=== PATIENT | female | born 1965 | race Caucasian/White ===

== ENCOUNTER 2019-01-03 06:28 | Day surgery (SDC) | payer MEDICAID ==
[2019-01-03] MEDS ORDERED: Lactated Ringers 1,000 ML IV SCH (07:15)
[2019-01-03] MEDS ORDERED: fentaNYL 100 MCG/2 ML SDV ONE (07:32)
[2019-01-03] MEDS ORDERED: Midazolam 1 MG/ML 2 ML SDV ONE (07:32)
[2019-01-03] MEDS ORDERED: Propofol 200 MG/20 ML SDV ONE (07:32)
[2019-01-03 09:14] VITALS: BP 126/93
--- NOTE | 2019-01-03 14:54 | PROC ---
DATE OF PROCEDURE: 01/03/2019 SURGEON: Carlos Pringle MD INDICATIONS: Padmini is a 53-year-old white female, comes in because of recurrent abdominal pain. When she eats, she has almost immediate pain to the point where she can hardly function, and she is afraid to eat because of the pain. The risks and benefits were explained to the patient and was taken to the OR. PROCEDURE IN DETAIL: Anesthesia was given by nurse contract officer. During the procedure, used 2 mg of Versed, 100 mcg of fentanyl, and 90 mg of propofol. The Olympus 180 scope was used. The tube was placed into the pharynx into the esophagus without difficulty and advanced under direct vision. We got into the stomach and advanced through the pylorus into the first and second part of the duodenum. Upon slow retraction of the tube, noted no lesions, ulceration, no abnormality in the small intestine, as well as the duodenal bulb. The tube was brought back into the stomach, which got good observation of the antrum, greater and lesser curvature, and the fundus. No obvious pathology was noted in the stomach. The GE junction was identified and there was a significant hiatal hernia noted greater than 2 cm. There was mild erythema noted through the area. The remainder of the esophagus was unremarkable. The vocal cords move symmetrically. No obvious pathology noted. The tube was removed. The patient tolerated the procedure well. PREOPERATIVE DIAGNOSIS: Abdominal pain. POSTOPERATIVE DIAGNOSIS: Hiatal hernia. No other pathology was noted. Carlos Pringle MD /[id number]
== END 2019-01-03 09:18 | disposition home or self-care (01) ==
LOC: JP.SDS 06:28
PROVIDERS: ATTEND Internal Medicine
DX: K44.9 Diaphragmatic hernia without obstruction or gangrene (principal); K21.9 Gastro-esophageal reflux disease without esophagitis; I10 Essential (primary) hypertension; F17.200 Nicotine dependence, unspecified, uncomplicated; F41.9 Anxiety disorder, unspecified; F32.9 Major depressive disorder, single episode, unspecified; E66.9 Obesity, unspecified; Z68.36 Body mass index [BMI] 36.0-36.9, adult; Z79.899 Other long term (current) drug therapy
CPT/HCPCS: 44376; J2250; J2704; J3010; J7120

== ENCOUNTER 2019-01-31 06:17 | Day surgery (SDC) | payer MEDICAID ==
[2019-01-31] MEDS ORDERED: fentaNYL 100 MCG/2 ML SDV ONE (07:28)
[2019-01-31] MEDS ORDERED: Propofol 200 MG/20 ML SDV ONE (07:28)
[2019-01-31] MEDS ORDERED: Midazolam 1 MG/ML 2 ML SDV ONE (07:28)
[2019-01-31] MEDS ORDERED: Lactated Ringers 1,000 ML IV SCH (07:30)
[2019-01-31 09:47] VITALS: BP 115/76
[2019-01-31] MEDS ORDERED: Iohexol 300 MG/ML 30 ML Bottle PO ONE (11:33)
[2019-01-31] MEDS ORDERED: Iopamidol 612 MG/ML 100 ML Bottle IV SCH (11:45)
[2019-01-31] MEDS ORDERED: Sodium Chloride 0.9% 100 ML IV SCH (11:45)
--- NOTE | 2019-01-31 16:18 | CRLCT ---
INDICATION: Adrenal mass. Hiatal hernia. Right upper quadrant abdominal pain. COMPARISON: 01/01/2019 TECHNIQUE: CT examination of the abdomen and pelvis was performed with the uneventful intravenous administration of 100 cc of Isovue-300 while 3 mm thick axial sections were obtained from the lung bases through the pubic symphysis. Oral contrast was administered. Please note that all CT scans at this facility use dose modulation, iterative reconstruction, and/or weight-based dosing when appropriate to reduce radiation dose to as low as reasonably achievable. FINDINGS: In the abdomen, the liver, spleen, pancreas, and right adrenal are normal in appearance. There is no change in the size of the left adrenal nodule measuring 16 x 11 millimeters. The nodule has relatively low density on today`s study and is consistent with an adrenal adenoma. The kidneys are normal in appearance. Clips are again seen in the gall bladder fossa from cholecystectomy. The abdominal aorta is normal in caliber with no sign of dilatation. There is no sign of retroperitoneal mass or adenopathy. The stomach, loops of small bowel, and right colon in the abdomen are normal in appearance. There is no change in moderate diverticulosis of the descending colon with no sign of diverticulitis. In the pelvis, the appendix is normal in appearance with no sign of inflammatory process. There is no change in prominent sigmoid diverticulosis without evidence of diverticulitis. The loops of small bowel and colon in the pelvis are otherwise normal in appearance. The uterus is again seen to be absent and the adnexal regions are normal in appearance. The urinary bladder is normal in appearance. There is no sign of pelvic or inguinal mass or adenopathy. The lung bases are clear. There is no change in a mild pericardial effusion. The osseous structures are normal in appearance for the patient`s age. IMPRESSION: Nothing seen to explain the patient`s abdominal pain. No sign of any inflammatory process involving the bowel. Stable prominent sigmoid and moderate descending colonic diverticulosis with no sign of diverticulitis. CT of the abdomen shows no change in a left adrenal nodule. It has relatively low-density on today`s study and is consistent with an adrenal adenoma. Again seen are changes of cholecystectomy with no sign of biliary ductal dilatation. CT of the pelvis shows no change in prominent sigmoid diverticulosis with no sign of diverticulitis. Status post hysterectomy. No change in mild pericardial effusion. Please note that all CT scans at this facility use dose modulation, iterative reconstruction, and/or weight-based dosing when appropriate to reduce radiation dose to as low as reasonably achievable. Dictated by Leonard Velasco MD @ Jan 31 2019 4:03PM Signed by Dr. Leonard Velasco @ Jan 31 2019 4:16PM
--- NOTE | 2019-02-01 08:04 | PROC ---
DATE OF PROCEDURE: 01/31/2019 SURGEON: Carlos Pringle MD INDICATIONS: Padmini is a 53-year-old female, comes in for a screening colonoscopy after having a positive Cologuard test. She does have a history of polyps in the past, hyperplastic. The risks and benefits were explained to the patient for a complete colonoscopy with possible biopsy and/or polypectomy. PROCEDURE IN DETAIL: Anesthesia was given by nurse wood gluer. During the procedure, we used 2 mg of Versed, 100 mcg of fentanyl, and 130 mg of propofol. The Olympus 180AL scope was used. The tube was placed into the rectum, after examination of the rectum with a gloved finger, which was unremarkable. The tube was advanced and did get to the cecum with minimal difficulty. Upon retraction of the tube, noted no lesions, ulceration, no abnormality, except for multiple diverticula in the descending colon. Good observation was done throughout the entire colon. The rectum and sigmoid were unremarkable as well. The tube was removed. The patient tolerated the procedure well. PREOPERATIVE DIAGNOSIS: Positive Cologuard evaluation. POSTOPERATIVE DIAGNOSIS: Normal colon from cecum to rectum, except for multiple diverticula in the descending colon. Carlos Pringle MD /[id number]
== END 2019-01-31 12:32 | disposition home or self-care (01) ==
LOC: JP.SDS 06:17
PROVIDERS: ATTEND Internal Medicine
DX: Z12.11 Encounter for screening for malignant neoplasm of colon (principal); K57.30 Diverticulosis of large intestine without perforation or abscess without bleeding; Z86.010 Personal history of colon polyps; I10 Essential (primary) hypertension; K21.9 Gastro-esophageal reflux disease without esophagitis; Z79.899 Other long term (current) drug therapy
CPT/HCPCS: 45378; 74177; J2250; J2704; J3010; J7030; J7120; Q9965; Q9967

== ENCOUNTER 2020-11-26 08:40 | Day surgery (SDC) | payer MEDICAID ==
[~2020-11-26 08:40] MED LIST: Midazolam 1 MG/ML 2 ML SDV ONE; Propofol 200 MG/20 ML SDV ONE; fentaNYL 100 MCG/2 ML SDV ONE
[2020-11-26] MEDS ORDERED: Sodium Chloride 0.9% 1,000 ML IV SCH (09:30)
[2020-11-26] MEDS ORDERED: Propofol 200 MG/20 ML SDV ONE (11:10)
--- NOTE | 2020-11-26 12:04 | PROC ---
DATE OF PROCEDURE: SURGEON: Carlos Pringle MD INDICATIONS: Padmini is a 55-year-old female who came to the office on Monday stating that she was not feeling well. On Monday, she had called and said that she was having diarrhea and felt that she had eaten something with bacteria and wanted to be put on something for a bacterial infection. She took tetracycline. The diarrhea continued and she continued to have abdominal pain as well as blood. She has had a significant amount of blood-tinged stools for the last week and a half as well as abdominal pain for at least 2 or 3 weeks. The risks and benefits were explained to have a colonoscopy. PROCEDURE IN DETAIL: Anesthesia was given by nurse x ray service engineer. During procedure, we used 2 mg of Versed, 2 mL of fentanyl, and 400 mg of propofol. The Olympus 190L scope was used, was placed into the rectum and advanced under direct vision. Immediately upon going into the rectum, noted significant erythema. The tube was advanced and did get to the cecum and there was significant erythema throughout the entire course of the colon. The picture was taken of the cecum. There was significant erythema noted just proximal to the cecum and multiple biopsies done throughout the entire colon which revealed the same mucosal erythema with redness and local erythema and bleeding. The tube was removed. The patient tolerated the procedure well. PREOPERATIVE DIAGNOSIS: Abdominal pain with diarrhea and blood. POSTOPERATIVE DIAGNOSIS: Multiple areas of mucosal erythema with blood and significant redness throughout the entire colon consistence with colitis of the entire colon. Multiple biopsies were done. We will have her come in to the office in the first part of next week and we will speak with her about the report at that time. Carlos Pringle MD /[id number]
[2020-11-26 12:15] VITALS: BP 108/75; PULSE 77
== END 2020-11-26 12:30 | disposition home or self-care (01) ==
LOC: JP.SDS 08:40
PROVIDERS: ATTEND Internal Medicine
DX: K52.9 Noninfective gastroenteritis and colitis, unspecified (principal); K62.89 Other specified diseases of anus and rectum
CPT/HCPCS: J2250; J2704; J3010; J7030

== ENCOUNTER 2021-03-30 19:25 | Emergency (ER) | payer MEDICAID ==
[2021-03-30 19:58] VITALS: BP 127/79; PULSE 86
--- NOTE | 2021-03-30 21:11 | EDM.PDOC ---
ED HPI GENERAL MEDICAL PROBLEM - General Chief Complaint: Gastrointestinal Problem Stated Complaint: STOMACH PAINS Time Seen by Provider: 03/30/21 20:09 Source of Information: Reports: Patient History Limitations: Reports: No Limitations - History of Present Illness INITIAL COMMENTS - FREE TEXT/NARRATIVE: Patient presents emergency room today secondary to continued episodes of diarrhea bloody stools abdominal pain and cramping. She states that symptoms initially started in November she was seen and evaluated at that time to include colonoscopy with 6 biopsies that showed inflammation borderline ulcerative colitis is the working diagnosis. She states that she was then referred to gastroenterology in [place] she last saw him on 15 March prior to this current episode that started about 2 weeks ago. Patient states that she does no anxiety increases her episodes and symptoms since she has had some increased anxiety recently secondary to her 's leg injury as well as issues with her daughter. Patient states that she has been in contact over the last 2 weeks with her tyre retreader and tomorrow has some stool studies as well as other lab work ordered. She states that she is taking Metamucil and peppermint oil but it does not seem to be helping she also has Bentyl ordered she took that last night which she found very helpful for the abdominal cramping today she took it only once and she said it only partially helped but she also states that she is having a lot of burning type epigastric discomfort especially when she eats she did get some Mylanta and says that that partially has helped. PMH/Meds--reviewed in EMR NKDA right upper quadrant Pain Score (Numeric/FACES): 4 - Related Data Allergies Allergy/AdvReac Type Severity Reaction Status Date / Time No Known Allergies Allergy Verified 03/30/21 20:05 Home Meds: Home Meds Omeprazole 20 mg PO DAILY 11/19/14 [History] buPROPion [buPROPion XL] 300 mg PO DAILY 01/02/19 [History] ARIPiprazole [Abilify] 5 mg PO DAILY 03/30/21 [History] Dicyclomine [Bentyl] 10 mg PO TID 03/30/21 [History] hydrOXYzine HCL [Atarax] 25 mg PO TID PRN 03/30/21 [History] Past Medical History HEENT History: Reports: Impaired Vision Cardiovascular History: Reports: None Respiratory History: Reports: None Gastrointestinal History: Reports: Colon Polyp, Diverticulosis, GERD Genitourinary History: Reports: None 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, , Spontaneous Musculoskeletal History: Reports: Other (See Below) Other Musculoskeletal History: R shoulder dislocation 03/11/19 Neurological History: Reports: None Psychiatric History: Reports: Anxiety, Depression Endocrine/Metabolic History: Reports: Obesity/BMI 30+ Hematologic History: Reports: None Immunologic History: Reports: None Oncologic (Cancer) History: Reports: None Dermatologic History: Reports: None - Infectious Disease History Infectious Disease History: Reports: Chicken Pox, Measles, Mumps - Past Surgical History HEENT Surgical History: Reports: None Cardiovascular Surgical History: Reports: None Respiratory Surgical History: Reports: None GI Surgical History: Reports: Cholecystectomy, Colonoscopy, EGD Female Surgical History: Reports: D&C, Hysterectomy, Tubal Ligation Endocrine Surgical History: Reports: None Neurological Surgical History: Reports: None Musculoskeletal Surgical History: Reports: Shoulder Surgery Oncologic Surgical History: Reports: None Dermatological Surgical History: Reports: None Social & Family History - Family History Family Medical History: No Pertinent Family History - Caffeine Use Caffeine Use: Reports: Coffee, Soda ED ROS GENERAL - Review of Systems Review Of Systems: Comprehensive ROS is negative, except as noted in HPI. Constitutional: Reports: No Symptoms HEENT: Reports: No Symptoms Respiratory: Reports: No Symptoms Cardiovascular: Reports: No Symptoms Endocrine: Reports: No Symptoms GI/Abdominal: Reports: Abdominal Pain, Bloody Stool, Diarrhea. Denies: Nausea, Vomiting Musculoskeletal: Reports: No Symptoms Skin: Reports: No Symptoms Neurological: Reports: No Symptoms Psychiatric: Reports: No Symptoms Hematologic/Lymphatic: Reports: No Symptoms Immunologic: Reports: No Symptoms ED EXAM, GI/ABD - Physical Exam Exam: See Below Exam Limited By: No Limitations General Appearance: Alert, WD/WN, Mild Distress, Obese Eyes: Bilateral: Normal Appearance, EOMI Ears: Normal External Exam Nose: Normal Inspection Throat/Mouth: Normal Inspection, Normal Oropharynx, Normal Voice, No Airway Compromise Head: Atraumatic, Normocephalic Neck: Normal Inspection, Supple, Non-Tender, Full Range of Motion Respiratory/Chest: No Respiratory Distress, Lungs Clear, Normal Breath Sounds, No Accessory Muscle Use Cardiovascular: Normal Peripheral Pulses, Regular Rate, Rhythm, No Edema, No Murmur GI/Abdominal Exam: Normal Bowel Sounds, Soft, No Distention, Tender (mild diffuse). No: Non-Tender, Guarding, Rigid, Rebound (Female) Exam: Deferred Rectal (Female) Exam: Deferred Back Exam: Normal Inspection, Full Range of Motion Extremities: Normal Inspection, Normal Range of Motion, No Pedal Edema, Normal Capillary Refill Neurological: Alert, Oriented, Normal Cognition, Normal Gait, No Motor/Sensory Deficits Psychiatric: Normal Affect, Normal Mood Skin Exam: Warm, Dry, Intact, Normal Color, No Rash Course - Vital Signs Text/Narrative:: Lloyd with patient recommendation to start a PPI for epigastric burning sensation that sounds like some gastritis we will give patient initial dose here in the emergency room followed by prescription there is recommended that she follow-up with her tyre retreader in regards to today's medication that was started as well as further testing as recommended verbalized understanding agree with plan of care ready for discharge Last Recorded V/S: Last Vital Signs Temp 94.2 F L 03/30/21 20:10 Pulse 86 03/30/21 20:10 Resp 16 03/30/21 20:10 BP 127/79 03/30/21 20:10 Pulse Ox 98 03/30/21 20:10 - Orders/Labs/Meds Orders: Active Orders 24 hr Category Date Time Status Pantoprazole [ProTONIX] Med 03/30/21 21:15 Ordered 40 mg PO DAILY Medication Orders Pantoprazole Sodium (Pantoprazole 40 Mg Tab.Cr) 40 mg PO DAILY [facility] Meds: Medications Generic Name Dose Route Start Last Admin Trade Name Freq PRN Reason Stop Dose Admin Pantoprazole Sodium 40 mg 03/30/21 21:15 Pantoprazole 40 Mg Tab.Cr PO DAILY [facility] Departure - Departure Time of Disposition: 21:09 Disposition: Home, Self-Care 01 Condition: Good Clinical Impression: Gastritis - Discharge Information *PRESCRIPTION DRUG MONITORING PROGRAM REVIEWED*: Not Applicable *COPY OF PRESCRIPTION DRUG MONITORING REPORT IN PATIENT DUYEN: Not Applicable Instructions: Gastritis, Adult, [id number], Heartburn Referrals: Cynthia Morales PA-C [Primary Care Provider] - Additional Instructions: As discussed tonight Protonix was started in the emergency room and a prescription was provided please contact your tyre retreader for further management regarding your abdominal pain Sepsis Event Note (ED) - Evaluation Sepsis Screening Result: No Definite Risk - Focused Exam Vital Signs: Vital Signs Temp Pulse Resp BP Pulse Ox 03/30/21 20:10 94.2 F L 86 16 127/79 98 03/30/21 19:56 94.2 F L 86 16 127/79 98 - My Orders Last 24 Hours: My Active Orders 03/30/21 21:15 Pantoprazole [ProTONIX] 40 mg PO DAILY - Assessment/Plan Last 24 Hours: My Active Orders 03/30/21 21:15 Pantoprazole [ProTONIX] 40 mg PO DAILY
[2021-03-30] MEDS ORDERED: Pantoprazole 40 MG Tab.CR PO SCH (21:15)
== END 2021-03-30 21:20 | disposition home or self-care (01) ==
LOC: JP.ED 19:25
DX: K29.70 Gastritis, unspecified, without bleeding (principal); K21.9 Gastro-esophageal reflux disease without esophagitis; E66.9 Obesity, unspecified; Z68.33 Body mass index [BMI] 33.0-33.9, adult; Z79.899 Other long term (current) drug therapy
CPT/HCPCS: 99283; A9270

== ENCOUNTER 2021-05-26 17:00 | Emergency (ER) | payer MEDICAID ==
[2021-05-26 17:31] VITALS: BP 105/65; PULSE 93
--- NOTE | 2021-05-26 17:52 | EDM.PDOC ---
ED HPI GENERAL MEDICAL PROBLEM - General Chief Complaint: Upper Extremity Injury/Pain Stated Complaint: INJURED L SHOULDER Time Seen by Provider: 05/26/21 17:30 Source of Information: Reports: Patient, Family History Limitations: Reports: No Limitations - History of Present Illness INITIAL COMMENTS - FREE TEXT/NARRATIVE: 56-year-old female with a previous history of recurring left shoulder dislocation, has had surgical stabilization and has not had an episode in the last few years but today she was reaching backward in an awkward position for her purse and felt a pop in her shoulder and now it is painful and deformed. It feels very typical for her past shoulder dislocations. Onset: Sudden Duration: Hour(s): (Within the last hour) Location: Reports: Upper Extremity, Left Associated Symptoms: Reports: No Other Symptoms Left Shoulder Pain Score (Numeric/FACES): 7 - Related Data Allergies Allergy/AdvReac Type Severity Reaction Status Date / Time No Known Allergies Allergy Verified 05/26/21 17:23 Home Meds: Home Meds Omeprazole 20 mg PO DAILY 11/19/14 [History] buPROPion [buPROPion XL] 300 mg PO DAILY 01/02/19 [History] ARIPiprazole [Abilify] 5 mg PO DAILY 03/30/21 [History] hydrOXYzine HCL [Atarax] 25 mg PO TID PRN 03/30/21 [History] Mesalamine [Pentasa] 1,000 mg PO BID 05/20/21 [History] predniSONE [Prednisone] 7.5 mg PO DAILY 05/20/21 [History] Past Medical History HEENT History: Reports: Impaired Vision Cardiovascular History: Reports: None Respiratory History: Reports: None Gastrointestinal History: Reports: Colon Polyp, Diverticulosis, GERD Genitourinary History: Reports: None 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, , Spontaneous Musculoskeletal History: Reports: Other (See Below) Other Musculoskeletal History: R shoulder dislocation 03/11/19 Neurological History: Reports: None Psychiatric History: Reports: Anxiety, Depression Endocrine/Metabolic History: Reports: Obesity/BMI 30+ Hematologic History: Reports: None Immunologic History: Reports: None Oncologic (Cancer) History: Reports: None Dermatologic History: Reports: None - Infectious Disease History Infectious Disease History: Reports: Chicken Pox, Measles, Mumps - Past Surgical History HEENT Surgical History: Reports: None Cardiovascular Surgical History: Reports: None Respiratory Surgical History: Reports: None GI Surgical History: Reports: Cholecystectomy, Colonoscopy, EGD Female Surgical History: Reports: D&C, Hysterectomy, Tubal Ligation Endocrine Surgical History: Reports: None Neurological Surgical History: Reports: None Musculoskeletal Surgical History: Reports: Shoulder Surgery Oncologic Surgical History: Reports: None Dermatological Surgical History: Reports: None Social & Family History - Family History Family Medical History: No Pertinent Family History - Tobacco Use Tobacco Use Status *Q: Never Tobacco User - Caffeine Use Caffeine Use: Reports: Coffee, Soda - Recreational Drug Use Recreational Drug Use: No Review of Systems - Review of Systems Review Of Systems: See Below Constitutional: Denies: Fever Respiratory: Reports: No Symptoms Cardiovascular: Reports: No Symptoms GI/Abdominal: Reports: Other (Had a colonoscopy today, does have ulcerative colitis but no surgeries) Musculoskeletal: Reports: Shoulder Pain Skin: Reports: No Symptoms ED EXAM, GENERAL - Physical Exam Exam: See Below Exam Limited By: No Limitations General Appearance: Alert, Moderate Distress Head: Atraumatic Neck: Non-Tender Respiratory/Chest: Lungs Clear Cardiovascular: Regular Rate, Rhythm Extremities: Other (Left shoulder has a defect under the distal clavicle, with fullness anteriorly and significant pain with any passive range of motion of the shoulder. Distal CS is intact) Neurological: Alert, Oriented Skin Exam: Warm, Dry Course - Vital Signs Last Recorded V/S: Last Vital Signs Temp 95.8 F L 05/26/21 17:27 Pulse 93 05/26/21 17:27 Resp 16 05/26/21 17:27 BP 105/65 05/26/21 17:27 Pulse Ox 97 05/26/21 17:27 - Orders/Labs/Meds Orders: Active Orders 24 hr Category Date Time Status Consult to Orthopedic Clinic [CONS] Routine Cons 05/26/21 18:42 Active DME for Discharge [COMM] Stat Oth 05/26/21 18:29 Ordered Meds: Medications Discontinued Medications Generic Name Dose Route Start Last Admin Trade Name Joaquin PRN Reason Stop Dose Admin Propofol 200 mg 05/26/21 18:00 Propofol 200 Mg/20 Ml Sdv IVPUSH 05/26/21 18:01 ONETIME ONE Propofol Confirm 05/26/21 18:36 Propofol 200 Mg/20 Ml Sdv Administered 05/26/21 18:37 Dose 200 mg .ROUTE .STK-MED ONE - Re-Assessments/Exams Free Text/Narrative Re-Assessment/Exam: 05/26/21 18:40 X-ray confirmed a dislocated left shoulder. Anesthesia was consulted to assist in the patient was prepared for reduction using propofol. With countertraction under sedation of propofol, the shoulder was reduced without difficulty and a post reduction x-ray confirmed relocation. She was given a sling, and will recheck with orthopedics for follow-up next week. 05/26/21 18:43 Total time under anesthesia was 15 minutes Departure - Departure Time of Disposition: 19:27 Disposition: Home, Self-Care 01 Clinical Impression: Dislocation of left shoulder joint Qualifiers: Encounter type: initial encounter Qualified Code(s): S43.005A - Unspecified dislocation of left shoulder joint, initial encounter - Discharge Information Instructions: Shoulder Dislocation, [id number] Referrals: Carlos Pringle Sr, MD [Primary Care Provider] - Forms: ED Department Discharge Care Plan Goals: Wear sling for the next several days and then increase activity slowly and recheck with orthopedics next week. They should contact you with an appointment time. Sepsis Event Note (ED) - Evaluation Sepsis Screening Result: No Definite Risk - Focused Exam Vital Signs: Vital Signs Temp Pulse Resp BP Pulse Ox 05/26/21 17:27 95.8 F L 93 16 105/65 97 05/26/21 17:22 95.8 F L 93 16 105/65 97 - My Orders Last 24 Hours: My Active Orders 05/26/21 18:29 DME for Discharge [COMM] Stat 05/26/21 18:42 Consult to Orthopedic Clinic [CONS] Routine - Assessment/Plan Last 24 Hours: My Active Orders 05/26/21 18:29 DME for Discharge [COMM] Stat 05/26/21 18:42 Consult to Orthopedic Clinic [CONS] Routine
[2021-05-26] MEDS ORDERED: Propofol 200 MG/20 ML SDV IVPUSH ONE (18:00)
[2021-05-26] MEDS ORDERED: Propofol 200 MG/20 ML SDV ONE (18:36)
--- NOTE | 2021-05-26 19:11 | CRLCR ---
For Patients: As a result of the Cures Act, medical imaging exams and procedure reports are released immediately into your electronic medical record. You may view this report before your referring provider. If you have questions, please contact your health care provider. INDICATION: Likely dislocation TECHNIQUE: Single-view left shoulder COMPARISON: None FINDINGS AND IMPRESSION: There is inferior dislocation the humeral head relative to the glenoid. No definite fracture. No AC separation. No suspicious bone lesion. Dictated by Rome Pang MD @ 05/26/2021 7:09:03 PM Dictated by: Rome Pang MD @ 05/26/2021 19:09:12 (Electronically Signed)
--- NOTE | 2021-05-26 19:11 | CRLCR ---
For Patients: As a result of the Cures Act, medical imaging exams and procedure reports are released immediately into your electronic medical record. You may view this report before your referring provider. If you have questions, please contact your health care provider. INDICATION: Postreduction TECHNIQUE: Single-view left shoulder COMPARISON: Left shoulder performed at 6:08 p.m. on 05/26/2021. FINDINGS AND IMPRESSION: A single view of the left shoulder demonstrates interval reduction of the previously described glenohumeral dislocation. No definite fracture identified. No AC separation. No suspicious bone lesion. Dictated by Rome Pang MD @ 05/26/2021 7:10:32 PM Dictated by: Rome Pang MD @ 05/26/2021 19:10:41 (Electronically Signed)
== END 2021-05-26 19:05 | disposition home or self-care (01) ==
LOC: JP.ED 17:00
DX: S43.035A Inferior dislocation of left humerus, initial encounter (principal); K21.9 Gastro-esophageal reflux disease without esophagitis; E66.9 Obesity, unspecified; Z68.30 Body mass index [BMI] 30.0-30.9, adult; Z79.899 Other long term (current) drug therapy; X58.XXXA Exposure to other specified factors, initial encounter
CPT/HCPCS: 23650; 73020; 99283; J2704

== ENCOUNTER 2021-08-14 10:11 | Emergency (ER) | payer MEDICAID ==
[2021-08-14] MEDS ORDERED: Lactated Ringers 1,000 ML IV ONE (11:21)
[2021-08-14] MEDS ORDERED: Sodium Chloride 0.9% 10 ML Syringe FLUSH PRN (11:21)
[2021-08-14] MEDS ORDERED: Ondansetron 4 MG/2 ML SDV IVPUSH ONE (11:21)
[2021-08-14] MEDS ORDERED: fentaNYL 100 MCG/2 ML SDV IVPUSH ONE (11:21)
--- NOTE | 2021-08-14 11:24 | EDM.PDOC ---
ED HPI GENERAL MEDICAL PROBLEM - General Chief Complaint: Gastrointestinal Problem Stated Complaint: FLARE UP OF ULCER Time Seen by Provider: 08/14/21 11:13 Source of Information: Reports: Patient, Family, RN Notes Reviewed History Limitations: Reports: No Limitations - History of Present Illness INITIAL COMMENTS - FREE TEXT/NARRATIVE: 56-year-old female presents emergency department day with increasing abdominal pain, she describes it mainly as crampy it is greatest in the right upper quadrant. She does have a known history of ulcerative colitis has been on Remicade and a steroid taper for several months is currently at 20 mg prednisone per day. She states this particular flareup has been ongoing for about a week does feel nauseated does not want to eat or drink well pain is very intense and then will relax but last 5 or 6 hours at a time. No blood or mucus in her stools. Did have blood work done yesterday CBC and a CMP done at the clinic those values were within normal limits. RUQ abdomen Pain Score (Numeric/FACES): 5 - Related Data Allergies Allergy/AdvReac Type Severity Reaction Status Date / Time No Known Allergies Allergy Verified 08/14/21 10:22 Home Meds: Home Meds Omeprazole 20 mg PO DAILY 11/19/14 [History] buPROPion [buPROPion XL] 300 mg PO DAILY 01/02/19 [History] predniSONE [Prednisone] 20 mg PO DAILY 05/20/21 [History] Nystatin [Nystatin Crm] 30 gm TOP TID 05/31/21 [History] InFLIXimab [Remicade] 100 mg IV ASDIRECTED 08/14/21 [History] Ondansetron [Zofran ODT] 4 mg PO Q6H PRN #10 tab.dis 08/14/21 [Rx] azaTHIOprine [Azathioprine] 50 mg PO BID 08/14/21 [History] Past Medical History HEENT History: Reports: Impaired Vision Gastrointestinal History: Reports: Colon Polyp, Diverticulosis, GERD, Inflammatory Bowel Disease, Other (See Below) Other Gastrointestinal History: ulcerative colitis [employer] ATT[employer]OMATIC History: Reports: Dysfunctional Uterine Bleeding, , Spontaneous Musculoskeletal History: Reports: Other (See Below) Other Musculoskeletal History: R shoulder dislocation 03/11/19,. L shoulder dislocation 05/26/21 Psychiatric History: Reports: Anxiety, Depression Endocrine/Metabolic History: Reports: Obesity/BMI 30+ Hematologic History: Reports: None Immunologic History: Reports: None Oncologic (Cancer) History: Reports: None Dermatologic History: Reports: None - Infectious Disease History Infectious Disease History: Reports: Chicken Pox, Measles, Mumps - Past Surgical History HEENT Surgical History: Reports: None Cardiovascular Surgical History: Reports: None Respiratory Surgical History: Reports: None GI Surgical History: Reports: Cholecystectomy, Colonoscopy, EGD Female Surgical History: Reports: D&C, Hysterectomy, Tubal Ligation Endocrine Surgical History: Reports: None Neurological Surgical History: Reports: None Musculoskeletal Surgical History: Reports: Shoulder Surgery Oncologic Surgical History: Reports: None Dermatological Surgical History: Reports: None Social & Family History - Family History Family Medical History: No Pertinent Family History - Tobacco Use Tobacco Use Status *Q: Never Tobacco User - Caffeine Use Caffeine Use: Reports: Coffee, Soda - Recreational Drug Use Recreational Drug Use: No ED ROS GENERAL - Review of Systems Review Of Systems: See Below Constitutional: Denies: Fever, Chills Respiratory: Reports: No Symptoms Cardiovascular: Reports: No Symptoms GI/Abdominal: Reports: Abdominal Pain, Flatus, Nausea. Denies: Constipation, Diarrhea, Vomiting : Reports: No Symptoms ED EXAM, GI/ABD - Physical Exam Exam: See Below Exam Limited By: No Limitations General Appearance: Alert, WD/WN, No Apparent Distress Respiratory/Chest: No Respiratory Distress, Lungs Clear, Normal Breath Sounds, No Accessory Muscle Use, Chest Non-Tender Cardiovascular: Regular Rate, Rhythm, No Murmur GI/Abdominal Exam: Soft, Tender (Right upper quadrant) Course - Vital Signs Last Recorded V/S: Last Vital Signs Temp 97.1 F 08/14/21 10:29 Pulse 74 08/14/21 12:00 Resp 12 08/14/21 12:00 BP 118/67 08/14/21 12:00 Pulse Ox 98 08/14/21 12:00 - Orders/Labs/Meds Orders: Active Orders 24 hr Category Date Time Status Peripheral IV Care [RC] . DIRECTED Care 08/14/21 11:21 Active Abdomen 1V Upright [CR] Stat Exams 08/14/21 11:20 Taken Sodium Chloride 0.9% [Saline Flush] Med 08/14/21 11:21 Active 10 ml FLUSH ASDIRECTED PRN Peripheral IV Insertion Adult [OM.PC] Urgent Oth 08/14/21 11:21 Ordered Medication Orders Sodium Chloride (Sodium Chloride 0.9% 10 Ml Syringe) 10 ml FLUSH ASDIRECTED PRN PRN Reason: Keep Vein Open Labs: Laboratory Tests 08/14/21 08/14/21 Range/Units 11:30 11:30 Lactic Acid 0.8 (0.4-2.0) mmol/L Troponin I < 0.017 (0.000-0.056) ng/mL Meds: Medications Generic Name Dose Route Start Last Admin Trade Name Freq PRN Reason Stop Dose Admin Sodium Chloride 10 ml 08/14/21 11:21 Sodium Chloride 0.9% 10 Ml Syringe FLUSH ASDIRECTED PRN Keep Vein Open Discontinued Medications Generic Name Dose Route Start Last Admin Trade Name Freq PRN Reason Stop Dose Admin Fentanyl 50 mcg 08/14/21 11:21 08/14/21 12:06 Fentanyl 100 Mcg/2 Ml Sdv IVPUSH 08/14/21 11:22 50 mcg ONETIME ONE Administration Lactated Ringer's 1,000 mls @ 999 mls/hr 08/14/21 11:21 08/14/21 12:03 Ringers, Lactated IV 08/14/21 12:21 999 mls/hr BOLUS ONE Administration Ondansetron HCl 4 mg 08/14/21 11:21 08/14/21 12:04 Ondansetron 4 Mg/2 Ml Sdv IVPUSH 08/14/21 11:22 4 mg ONETIME ONE Administration Departure - Departure Time of Disposition: 12:29 Disposition: Home, Self-Care 01 Condition: Fair Clinical Impression: Functional constipation - Discharge Information Instructions: Constipation, Adult Referrals: PCP,None [Primary Care Provider] - Forms: ED Department Discharge Additional Instructions: Try the MiraLAX colonoscopy prep, use Zofran as needed for nausea vomiting symptoms, please followup with your primary care provider in 3-5 days if not better, please call return to the emergency department with worsening of symptoms. Sepsis Event Note (ED) - Evaluation Sepsis Screening Result: No Definite Risk - Focused Exam Vital Signs: Vital Signs Temp Pulse Resp BP Pulse Ox 08/14/21 12:00 74 12 118/67 98 08/14/21 10:29 97.1 F 78 16 137/88 98 - My Orders Last 24 Hours: My Active Orders 08/14/21 11:20 Abdomen 1V Upright [CR] Stat 08/14/21 11:21 Peripheral IV Care [RC] . DIRECTED Sodium Chloride 0.9% [Saline Flush] 10 ml FLUSH ASDIRECTED PRN Peripheral IV Insertion Adult [OM.PC] Urgent - Assessment/Plan Last 24 Hours: My Active Orders 08/14/21 11:20 Abdomen 1V Upright [CR] Stat 08/14/21 11:21 Peripheral IV Care [RC] . DIRECTED Sodium Chloride 0.9% [Saline Flush] 10 ml FLUSH ASDIRECTED PRN Peripheral IV Insertion Adult [OM.PC] Urgent Plan: Assessment Acuity = acute Site and laterality = functional constipation Etiology = slow transit time Manifestations = abdominal pain Location of injury = Home Lab values = troponin lactic acid within normal limits plain film the abdomen does show stool and gas Plan She is willing to try MiraLAX at home colonoscopy prep follow-up primary care 3 to 5 days for reevaluation, Zofran 4 mg ODT 1 tab p.o. 3 times daily as needed total #10 faxed to [facility] This note was dictated using [employer] voice recognition software please call with any questions on syntax or grammar.
[2021-08-14 12:08] VITALS: BP 118/67; PULSE 74
--- NOTE | 2021-08-16 09:35 | CR ---
Abdomen 1V Upright CLINICAL HISTORY: Abdominal pain FINDINGS: No free air is identified. There are a few scattered air-filled loops of small bowel in a nonacute pattern. There is gas and feces throughout the colon. There are surgical clips in right upper quadrant. IMPRESSION: Nonacute intestinal gas pattern
== END 2021-08-14 12:46 | disposition home or self-care (01) ==
LOC: JP.ED 10:11
DX: K59.04 Chronic idiopathic constipation (principal); K21.9 Gastro-esophageal reflux disease without esophagitis; E66.9 Obesity, unspecified; Z68.32 Body mass index [BMI] 32.0-32.9, adult; Z79.899 Other long term (current) drug therapy
CPT/HCPCS: 36415; 74018; 83605; 84484; 96374; 96375; 99284; J2405; J3010; J7120

== ENCOUNTER 2021-09-20 14:23 | Emergency (ER) | payer MEDICAID ==
[2021-09-20] MEDS ORDERED: fentaNYL 100 MCG/2 ML SDV IVPUSH ONE (14:44)
[2021-09-20] MEDS ORDERED: Sodium Chloride 0.9% 10 ML Syringe FLUSH PRN (14:44)
[2021-09-20] MEDS ORDERED: Sodium Chloride 0.9% 1,000 ML IV SCH (14:45)
--- NOTE | 2021-09-20 14:47 | EDM.PDOC ---
ED HPI GENERAL MEDICAL PROBLEM - General Chief Complaint: Upper Extremity Injury/Pain Stated Complaint: LEFT SHOULDER DISLOCATED Time Seen by Provider: 09/20/21 14:44 Source of Information: Reports: Patient, Family, RN Notes Reviewed History Limitations: Reports: No Limitations - History of Present Illness INITIAL COMMENTS - FREE TEXT/NARRATIVE: 56-year-old female presents emergency department today with left shoulder pain she does have a history of shoulder dislocation this will be the fourth 1 she has had on this shoulder. She did it herself while reaching above her head pushing on some paneling Left Shoulder Pain Score (Numeric/FACES): 8 - Related Data Allergies Allergy/AdvReac Type Severity Reaction Status Date / Time No Known Allergies Allergy Verified 09/20/21 14:52 Home Meds: Home Meds Omeprazole 20 mg PO DAILY 11/19/14 [History] buPROPion [buPROPion XL] 300 mg PO DAILY 01/02/19 [History] predniSONE [Prednisone] 20 mg PO DAILY 05/20/21 [History] Nystatin [Nystatin Crm] 30 gm TOP TID 05/31/21 [History] InFLIXimab [Remicade] 100 mg IV ASDIRECTED 08/14/21 [History] Ondansetron [Zofran ODT] 4 mg PO Q6H PRN #10 tab.dis 08/14/21 [Rx] azaTHIOprine [Azathioprine] 50 mg PO BID 08/14/21 [History] Past Medical History HEENT History: Reports: Impaired Vision Gastrointestinal History: Reports: Colon Polyp, Diverticulosis, GERD, Inflammatory Bowel Disease, Other (See Below) Other Gastrointestinal History: ulcerative colitis [employer] SPECIALIST History: Reports: Dysfunctional Uterine Bleeding, , Spontaneous Musculoskeletal History: Reports: Other (See Below) Other Musculoskeletal History: R shoulder dislocation 03/11/19,. L shoulder dislocation 05/26/21 Psychiatric History: Reports: Anxiety, Depression Endocrine/Metabolic History: Reports: Obesity/BMI 30+ Hematologic History: Reports: None Immunologic History: Reports: None Oncologic (Cancer) History: Reports: None Dermatologic History: Reports: None - Infectious Disease History Infectious Disease History: Reports: Chicken Pox, Measles, Mumps - Past Surgical History HEENT Surgical History: Reports: None Cardiovascular Surgical History: Reports: None Respiratory Surgical History: Reports: None GI Surgical History: Reports: Cholecystectomy, Colonoscopy, EGD Female Surgical History: Reports: D&C, Hysterectomy, Tubal Ligation Endocrine Surgical History: Reports: None Neurological Surgical History: Reports: None Musculoskeletal Surgical History: Reports: Shoulder Surgery Oncologic Surgical History: Reports: None Dermatological Surgical History: Reports: None Social & Family History - Family History Family Medical History: No Pertinent Family History - Caffeine Use Caffeine Use: Reports: Coffee, Soda Review of Systems - Review of Systems Review Of Systems: See Below Musculoskeletal: Reports: Shoulder Pain ED EXAM, GENERAL - Physical Exam Exam: See Below Free Text/Narrative:: Examination of the left shoulder I do appreciate an anterior bulge she is very tender to the touch will not tolerate any type of exam she is in a sling does have a surgical scar over the shoulder Exam Limited By: No Limitations General Appearance: Alert, Mild Distress Respiratory/Chest: No Respiratory Distress ED TRAUMA EXTREMITY PROCEDURES - Joint Reduction Left Shoulder Sedation: Conscious Sedation Pre-Procedure NV Status: Normal Post-Procedure NV Status: Normal Technique: Traction/Counter Traction Number of Attempts: 1 Post-Reduction Imaging: Completely Reduced Joint Reduction Complications: No Course - Vital Signs Last Recorded V/S: Last Vital Signs Temp 94.7 F L 09/20/21 14:58 Pulse 71 09/20/21 14:58 Resp 20 09/20/21 14:58 BP 116/85 09/20/21 14:58 Pulse Ox 93 L 09/20/21 14:58 - Orders/Labs/Meds Orders: Active Orders 24 hr Category Date Time Status Peripheral IV Care [RC] . DIRECTED Care 09/20/21 14:45 Active Shoulder 1V Lt [CR] Stat Exams 09/20/21 15:50 Ordered Sodium Chloride 0.9% [Normal Saline] 1,000 ml Med 09/20/21 14:45 Active IV ASDIRECTED Sodium Chloride 0.9% [Saline Flush] Med 09/20/21 14:44 Active 10 ml FLUSH ASDIRECTED PRN Peripheral IV Insertion Adult [OM.PC] Urgent Oth 09/20/21 14:44 Ordered Medication Orders Sodium Chloride (Normal Saline) 1,000 mls @ 100 mls/hr IV ASDIRECTED AZRA Last Admin: 09/20/21 15:11 Dose: 100 mls/hr Documented by: [id number] Sodium Chloride (Sodium Chloride 0.9% 10 Ml Syringe) 10 ml FLUSH ASDIRECTED PRN PRN Reason: Keep Vein Open Last Admin: 09/20/21 15:14 Dose: 10 ml Documented by: [id number] Meds: Medications Generic Name Dose Route Start Last Admin Trade Name Joaquin PRN Reason Stop Dose Admin Sodium Chloride 1,000 mls @ 100 mls/hr 09/20/21 14:45 09/20/21 15:11 Normal Saline IV 100 mls/hr ASDIRECTED AZRA Administration Sodium Chloride 10 ml 09/20/21 14:44 09/20/21 15:14 Sodium Chloride 0.9% 10 Ml Syringe FLUSH 10 ml ASDIRECTED PRN Administration Keep Vein Open Discontinued Medications Generic Name Dose Route Start Last Admin Trade Name Mananq PRN Reason Stop Dose Admin Fentanyl 50 mcg 09/20/21 14:44 09/20/21 15:05 Fentanyl 100 Mcg/2 Ml Sdv IVPUSH 09/20/21 14:45 50 mcg ONETIME ONE Administration Hydromorphone HCl 1 mg 09/20/21 15:40 09/20/21 15:44 Hydromorphone 1 Mg/Ml Syringe IVPUSH 09/20/21 15:41 1 mg ONETIME ONE Administration Departure - Departure Time of Disposition: 16:08 Disposition: Home, Self-Care 01 Condition: Fair Clinical Impression: Shoulder dislocation Qualifiers: Encounter type: initial encounter Laterality: left Qualified Code(s): S43.005A - Unspecified dislocation of left shoulder joint, initial encounter - Discharge Information Instructions: Shoulder Dislocation, [id number] Referrals: Carlos Pringle Sr, MD [Primary Care Provider] - Forms: ED Department Discharge Additional Instructions: Use hydrocodone as needed for pain control she has been set up with orthopedic surgery for further evaluation they should contact you for an appointment time call return to the emergency department worsening of symptoms remain in the sling until reevaluated by orthopedics Sepsis Event Note (ED) - Focused Exam Vital Signs: Vital Signs Temp Pulse Resp BP Pulse Ox 09/20/21 14:58 94.7 F L 71 20 116/85 93 L 09/20/21 14:42 94.7 F L 71 20 116/85 93 L - My Orders Last 24 Hours: My Active Orders 09/20/21 14:44 Sodium Chloride 0.9% [Saline Flush] 10 ml FLUSH ASDIRECTED PRN Peripheral IV Insertion Adult [OM.PC] Urgent 09/20/21 14:45 Peripheral IV Care [RC] . DIRECTED Sodium Chloride 0.9% [Normal Saline] 1,000 ml IV ASDIRECTED 09/20/21 15:50 Shoulder 1V Lt [CR] Stat - Assessment/Plan Last 24 Hours: My Active Orders 09/20/21 14:44 Sodium Chloride 0.9% [Saline Flush] 10 ml FLUSH ASDIRECTED PRN Peripheral IV Insertion Adult [OM.PC] Urgent 09/20/21 14:45 Peripheral IV Care [RC] . DIRECTED Sodium Chloride 0.9% [Normal Saline] 1,000 ml IV ASDIRECTED 09/20/21 15:50 Shoulder 1V Lt [CR] Stat Plan: Assessment Acuity = acute Site and laterality = left shoulder dislocation status post reduction Etiology = unknown Manifestations = none Location of injury = Home Lab values = initial film does show an anterior dislocation posterior film shows adequate reduction pending read radiology Plan Consultation was sent in for orthopedics hydrocodone 5/325 1 tab p.o. 3 times daily as needed total #10 provided for additional pain control if needed This note was dictated using [employer] voice recognition software please call with any questions on syntax or grammar.
--- NOTE | 2021-09-20 15:33 | CR ---
Shoulder Comp Lt CLINICAL HISTORY: Shoulder pain FINDINGS: There is no acute shoulder. There is an anterior dislocation at the glenohumeral joint. Impression: Anterior dislocation of the left shoulder
[2021-09-20] MEDS ORDERED: HYDROmorphone 1 MG/ML Syringe IVPUSH ONE (15:40)
[2021-09-20] MEDS ORDERED: Propofol 200 MG/20 ML SDV ONE (16:10)
[2021-09-20 16:49] VITALS: BP 126/86; PULSE 67
[2021-09-20] MEDS ORDERED: Ondansetron 4 MG Tab.DIS PO ONE (17:08)
--- NOTE | 2021-09-21 09:30 | CR ---
Shoulder 1V Lt CLINICAL HISTORY: Postreduction FINDINGS: Previously seen anterior dislocation has been reduced. There is a defect in the superior lateral humeral head consistent with a Hill-Sachs deformity. 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
== END 2021-09-20 17:18 | disposition home or self-care (01) ==
LOC: JP.ED 14:23
DX: S43.005A Unspecified dislocation of left shoulder joint, initial encounter (principal); K21.9 Gastro-esophageal reflux disease without esophagitis; E66.9 Obesity, unspecified; Z68.34 Body mass index [BMI] 34.0-34.9, adult; Z79.899 Other long term (current) drug therapy
CPT/HCPCS: 23650; 73020; 73030; 96374; 96375; 99283; A9270; J1170; J2704; J3010; J7030

== ENCOUNTER 2021-10-13 07:27 | Day surgery (SDC) | payer MEDICAID ==
[2021-10-13] MEDS ORDERED: Bupivacaine 0.5% 30 ML SDV ONE ×2 (07:28→10:13)
[2021-10-13] MEDS ORDERED: Lactated Ringers 1,000 ML IV SCH (08:30)
[2021-10-13] MEDS ORDERED: Nozin Nasal Sanitizer NASBOTH ONE (08:45)
[2021-10-13] MEDS ORDERED: ceFAZolin 1 GM in Premix Bag 1 BAG IV ONE (09:00)
[2021-10-13] MEDS ORDERED: methylPREDNISolone Sodium Succinate 125 MG/2 ML SDV IVPUSH ONE (09:15)
[2021-10-13] MEDS ORDERED: Midazolam 1 MG/ML 2 ML SDV ONE (10:00)
[2021-10-13] MEDS ORDERED: Propofol 200 MG/20 ML SDV ONE ×2 (10:09→10:37)
[2021-10-13] MEDS ORDERED: Ketamine 500 MG/5 ML MDV ONE (10:16)
[2021-10-13] MEDS ORDERED: fentaNYL 100 MCG/2 ML SDV ONE (10:21)
[2021-10-13] MEDS ORDERED: Labetalol 20 MG/4 ML Syringe ONE (10:40)
[2021-10-13] MEDS ORDERED: Bupivacaine 0.5% 30 ML SDV INJECT ONE ×2 (11:09)
[2021-10-13] MEDS ORDERED: Morphine 2 MG/ML SYRINGE IVPUSH ONE (11:30)
[2021-10-13] MEDS ORDERED: Acetaminophen/oxyCODONE 325-5 MG Tab PO PRN (13:08)
[2021-10-13] MEDS ORDERED: Ondansetron 4 MG/2 ML SDV IVPUSH ONE (13:30)
[2021-10-13 13:38] VITALS: PULSE 78
[2021-10-13 13:52] VITALS: BP 127/79
== END 2021-10-13 15:06 | disposition home or self-care (01) ==
LOC: JP.SDS 07:27
PROVIDERS: ATTEND Specialist
DX: M24.412 Recurrent dislocation, left shoulder (principal); S43.492A Other sprain of left shoulder joint, initial encounter; M25.312 Other instability, left shoulder; I10 Essential (primary) hypertension; K21.9 Gastro-esophageal reflux disease without esophagitis; F41.9 Anxiety disorder, unspecified; F32.A Depression, unspecified; Z90.49 Acquired absence of other specified parts of digestive tract; Z98.890 Other specified postprocedural states; Z87.891 Personal history of nicotine dependence
CPT/HCPCS: 29806; 36415; 80053; 85027; A9270-GY; C1713; J0690; J2250; J2270; J2405; J2704; J2930; J3010; J3490; J7120

== ENCOUNTER 2024-04-11 22:41 | Inpatient (IN) | payer MEDICAID ==
[2024-04-11] MEDS: Sodium Chloride 0.9% 1,000 ML IV ONE (23:16)
[2024-04-11 23:19] LABS: BASOPHILS ABSOLUTE AUTO 0.04 K/uL (0.00-0.10); BASOPHILS PERCENT AUTO 0.2 % (0.1-1.3); EOSINOPHILS PERCENT AUTO 0.1 % (0.0-5.4); HEMATOCRIT 45.5 % (34.3-46.0); HEMOGLOBIN 15.6 g/dL (11.2-15.5); IMMATURE GRAN ABSOLUTE AUTO 0.16 K/uL (0.00-0.23); IMMATURE GRAN PERCENT AUTO 0.9 % (0.0-0.7); LYMPHOCYTES PERCENT AUTO 1.1 % (11.4-47.7); MEAN CORPUSCULAR HGB CONC 34.3 g/dL (31.6-35.5); MEAN CORPUSCULAR VOLUME 87.5 fL (81.4-99.0); MONOCYTES ABSOLUTE AUTO 0.32 K/uL (0.20-0.90); MONOCYTES PERCENT AUTO 1.7 % (3.3-12.6); NEUTROPHILS ABSOLUTE AUTO 17.83 K/uL (1.0-7.6); PLATELET COUNT,PLT 251 K/uL (130-375); WHITE BLOOD CELL COUNT,WBC 18.6 K/uL (3.2-11.0)
[2024-04-11 23:27] LABS: EOSINOPHILS ABSOLUTE AUTO 0.01 K/uL (0.00-0.40)
[2024-04-11 23:44] LABS: PROTHROMBIN TIME 10.6 sec (9.2-10.6); PTT,PARTIAL THROMBOPLSTIN TIME 22.9 sec (21.8-27.3)
[2024-04-11] MEDS: Iopamidol 612 MG/ML 100 ML Bottle IV STA (23:44)
[2024-04-11] MEDS: Sodium Chloride 0.9% 80 ML IV STA (23:44)
[2024-04-11 23:46] LABS: A/G RATIO 0.8 (1.2-2.2); ALANINE AMINOTRANSFERASE,ALT 60 U/L (12-78); ALBUMIN 3.8 g/dL (3.4-5.0); ALKALINE PHOSPHATASE 117 U/L (46-116); ASPARTATE AMNIOTRANSFERASE,AST 32 U/L (15-37); BILIRUBIN TOTAL 0.5 mg/dL (0.2-1.0); BLOOD UREA NITROGEN,BUN 15 mg/dL (7-18); CALCIUM 8.5 mg/dL (8.5-10.1); CHLORIDE,CL 106 mmol/L (100-108); EST CRCL DRUG DOSING (CG) 51.66 mL/min; ESTIMATED GFR 64 mL/min (>60); GLUCOSE RANDOM 120 mg/dL (74-106); POTASSIUM,K 3.7 mmol/L (3.6-5.2); PROTEIN TOTAL,TP 8.4 g/dL (6.4-8.2); SODIUM,NA 140 mmol/L (140-148)
[2024-04-11 23:48] LABS: ANION GAP 22.7 mmol/L (5.0-14.0); CARBON DIOXIDE,CO2 15 mmol/L (21-32)
[2024-04-12] MEDS: Sodium Chloride 0.9% 10 ML Syringe FLUSH PRN (01:06)
[2024-04-12] MEDS: metroNIDAZOLE/Normal Saline 500 MG in Premix Bag 1 BAG IV ONE (01:06)
[2024-04-12] MEDS: Prochlorperazine 10 MG/2 ML SDV IVPUSH ONE (01:06)
[2024-04-12] MEDS: Sodium Chloride 0.9% 1,000 ML IV ONE ×2 (01:07→05:45)
[2024-04-12] MEDS: Ciprofloxacin in D5W 400 MG in Premix Bag 1 BAG IV ONE (02:17)
[2024-04-12] MEDS ORDERED: Ondansetron 4 MG Tab.DIS PO PRN (02:57)
[2024-04-12] MEDS ORDERED: Melatonin 3 MG Tab PO PRN (02:57)
[2024-04-12] MEDS ORDERED: Ondansetron 4 MG/2 ML SDV IV PRN (02:57)
[2024-04-12 03:47] LABS: APPEARANCE,URINE CLEAR (CLEAR); BILIRUBIN,URINE NEGATIVE (NEGATIVE); COLOR,URINE YELLOW (YELLOW); GLUCOSE,URINE NEGATIVE (NEGATIVE); KETONES,URINE NEGATIVE (NEGATIVE); LEUKOCYTE ESTERASE,URINE NEGATIVE (NEGATIVE); NITRITE,URINE NEGATIVE (NEGATIVE); OCCULT BLOOD,URINE MODERATE (NEGATIVE); PH,URINE 5.5 (5.0-8.0); PROTEIN,URINE 30 mg/dL (NEGATIVE); UROBILINOGEN,URINE 0.2 EU/dL (0.2-1.0)
[2024-04-12] MEDS: Sodium Chloride 0.9% 1,000 ML IV SCH ×2 (03:48→13:06)
[2024-04-12 04:00] LABS: AMORPHOUS SEDIMENT,URINE NOT SEEN; BACTERIA,URINE FEW; EPITHELIAL CELLS,URINE FEW; MUCUS,URINE NOT SEEN; RBC,URINE 0-5 (0-5); WBC,URINE 0-5 (0-5)
[2024-04-12 04:07] LABS: ANION GAP 19.7 mmol/L (5.0-14.0); CALCIUM 7.2 mg/dL (8.5-10.1); CREATININE 1.2 mg/dL (0.6-1.0); EST CRCL DRUG DOSING (CG) 43.05 mL/min; POTASSIUM,K 3.7 mmol/L (3.6-5.2)
[2024-04-12] MEDS: Acetaminophen 325 MG Tab PO PRN (06:04)
[2024-04-12 06:10] LABS: HEMATOCRIT 33.3 % (34.3-46.0); HEMOGLOBIN 11.4 g/dL (11.2-15.5); MEAN CORPUSCULAR HEMOGLOBIN 30.1 pg (31.6-35.5); MEAN CORPUSCULAR HGB CONC 34.2 g/dL (31.6-35.5); MEAN CORPUSCULAR VOLUME 87.9 fL (81.4-99.0); RED BLOOD CELL COUNT 3.79 M/uL (3.77-5.24); WHITE BLOOD CELL COUNT,WBC 12.5 K/uL (3.2-11.0)
[2024-04-12 06:26] LABS: CREATININE 0.9 mg/dL (0.6-1.0); EST CRCL DRUG DOSING (CG) 57.4 mL/min; MAGNESIUM 1.2 mg/dL (1.8-2.4); POTASSIUM,K 3.1 mmol/L (3.6-5.2)
[2024-04-12 06:31] LABS: ANION GAP 17.1 mmol/L (5.0-14.0)
[2024-04-12 06:34] LABS: CALCIUM 6.9 mg/dL (8.5-10.1)
[2024-04-12] MEDS: Pantoprazole 40 MG Tab.CR PO SCH (07:15)
[2024-04-12] MEDS: Hydrocortisone Sodium Succinate 100 MG/2 ML SDV IVPUSH SCH (07:15)
[2024-04-12] MEDS: Calcium Gluconate 1 GM in Sodium Chloride 0.9% 100 ML IV ONE (08:15)
[2024-04-12] MEDS: metroNIDAZOLE/Normal Saline 500 MG in Premix Bag 1 BAG IV SCH (08:18)
[2024-04-12] MEDS: Lactobacillus Rhamnosus GG (Probiotic) Cap PO SCH (09:56)
[2024-04-12] MEDS ORDERED: Doxycycline 100 MG in Sodium Chloride 0.9% 100 ML IV SCH (10:00)
[2024-04-12 10:39] LABS: HEMOGLOBIN 11.5 g/dL (11.2-15.5); MEAN CORPUSCULAR HGB CONC 33.8 g/dL (31.6-35.5); MEAN CORPUSCULAR VOLUME 88.8 fL (81.4-99.0); RED BLOOD CELL COUNT 3.83 M/uL (3.77-5.24); WHITE BLOOD CELL COUNT,WBC 16.1 K/uL (3.2-11.0)
[2024-04-12 10:59] LABS: A/G RATIO 0.7 (1.2-2.2); ALANINE AMINOTRANSFERASE,ALT 51 U/L (12-78); ALBUMIN 2.6 g/dL (3.4-5.0); ALKALINE PHOSPHATASE 57 U/L (46-116); ANION GAP 11.7 mmol/L (5.0-14.0); ASPARTATE AMNIOTRANSFERASE,AST 30 U/L (15-37); BILIRUBIN TOTAL 0.6 mg/dL (0.2-1.0); BLOOD UREA NITROGEN,BUN 11 mg/dL (7-18); C-REACTIVE PROTEIN 6.97 mg/dL (<0.50); CALCIUM 7.3 mg/dL (8.5-10.1); CARBON DIOXIDE,CO2 21 mmol/L (21-32); CHLORIDE,CL 107 mmol/L (100-108); CREATININE 1.1 mg/dL (0.6-1.0); EST CRCL DRUG DOSING (CG) 46.96 mL/min; ESTIMATED GFR 58 mL/min (>60); GLUCOSE RANDOM 120 mg/dL (74-106); POTASSIUM,K 3.7 mmol/L (3.6-5.2); PROTEIN TOTAL,TP 6.2 g/dL (6.4-8.2); SODIUM,NA 140 mmol/L (140-148)
[2024-04-12] MEDS: Magnesium Sulfate/Water 2 GM in Premix Bag 1 BAG IV ONE (11:05)
[2024-04-12] MEDS: Norepinephrine Bit/D5W Premix 4 MG in Premix Bag 1 BAG IV SCH (11:25)
[2024-04-12] MEDS: Piperacillin/Tazobactam/Dext 4.5 GM in Premix Bag 1 BAG IV ONE (12:06)
[2024-04-12] MEDS ORDERED: cefTRIAXone 1 GM in Sodium Chloride 0.9% 50 ML IV SCH (14:30)
[2024-04-12 14:32] LABS: HEMATOCRIT 33.7 % (34.3-46.0); HEMOGLOBIN 11.5 g/dL (11.2-15.5); MEAN CORPUSCULAR HEMOGLOBIN 29.6 pg (31.6-35.5); MEAN CORPUSCULAR HGB CONC 34.1 g/dL (31.6-35.5); MEAN CORPUSCULAR VOLUME 86.6 fL (81.4-99.0); RED BLOOD CELL COUNT 3.89 M/uL (3.77-5.24); WHITE BLOOD CELL COUNT,WBC 20.9 K/uL (3.2-11.0)
[2024-04-12] MEDS: Calcium Carbonate 500 MG Tab.Chew PO PRN (14:39)
[2024-04-12 14:55] LABS: A/G RATIO 0.7 (1.2-2.2); ALANINE AMINOTRANSFERASE,ALT 52 U/L (12-78); ALBUMIN 2.7 g/dL (3.4-5.0); ALKALINE PHOSPHATASE 58 U/L (46-116); ANION GAP 15.9 mmol/L (5.0-14.0); ASPARTATE AMNIOTRANSFERASE,AST 29 U/L (15-37); BILIRUBIN TOTAL 0.9 mg/dL (0.2-1.0); BLOOD UREA NITROGEN,BUN 10 mg/dL (7-18); C-REACTIVE PROTEIN 9.97 mg/dL (<0.50); CALCIUM 7.8 mg/dL (8.5-10.1); CARBON DIOXIDE,CO2 20 mmol/L (21-32); CHLORIDE,CL 108 mmol/L (100-108); CREATININE 0.8 mg/dL (0.6-1.0); EST CRCL DRUG DOSING (CG) 64.58 mL/min; ESTIMATED GFR 84 mL/min (>60); GLUCOSE RANDOM 142 mg/dL (74-106); POTASSIUM,K 3.9 mmol/L (3.6-5.2); PROTEIN TOTAL,TP 6.5 g/dL (6.4-8.2); SODIUM,NA 140 mmol/L (140-148)
[2024-04-12] MEDS: Iopamidol 612 MG/ML 100 ML Bottle IV SCH (15:50)
[2024-04-12] MEDS: Sodium Chloride 0.9% 80 ML IV SCH (15:50)
[2024-04-13 05:14] LABS: HEMATOCRIT 31.6 % (34.3-46.0); HEMOGLOBIN 10.9 g/dL (11.2-15.5); MEAN CORPUSCULAR HEMOGLOBIN 29.9 pg (31.6-35.5); MEAN CORPUSCULAR HGB CONC 34.5 g/dL (31.6-35.5); MEAN CORPUSCULAR VOLUME 86.6 fL (81.4-99.0); RED BLOOD CELL COUNT 3.65 M/uL (3.77-5.24); WHITE BLOOD CELL COUNT,WBC 14.3 K/uL (3.2-11.0)
[2024-04-13 05:34] LABS: A/G RATIO 0.8 (1.2-2.2); ALANINE AMINOTRANSFERASE,ALT 49 U/L (12-78); ALBUMIN 2.7 g/dL (3.4-5.0); ALKALINE PHOSPHATASE 50 U/L (46-116); ASPARTATE AMNIOTRANSFERASE,AST 26 U/L (15-37); BILIRUBIN TOTAL 0.4 mg/dL (0.2-1.0); BLOOD UREA NITROGEN,BUN 7 mg/dL (7-18); CALCIUM 7.9 mg/dL (8.5-10.1); CARBON DIOXIDE,CO2 22 mmol/L (21-32); CHLORIDE,CL 109 mmol/L (100-108); CREATININE 0.7 mg/dL (0.6-1.0); ESTIMATED GFR 99 mL/min (>60); GLUCOSE RANDOM 91 mg/dL (74-106); MAGNESIUM 2.1 mg/dL (1.8-2.4); PROTEIN TOTAL,TP 6.3 g/dL (6.4-8.2); SODIUM,NA 142 mmol/L (140-148)
[2024-04-13] MEDS: Potassium Chloride 20 MEQ Tab.ER PO SCH (10:47)
[2024-04-13] MEDS: Calcium Gluconate 1 GM in Sodium Chloride 0.9% 100 ML IV ONE (10:48)
[2024-04-14 05:07] LABS: HEMATOCRIT 32.6 % (34.3-46.0); HEMOGLOBIN 11.4 g/dL (11.2-15.5); MEAN CORPUSCULAR HEMOGLOBIN 29.7 pg (31.6-35.5); MEAN CORPUSCULAR VOLUME 84.9 fL (81.4-99.0); RED BLOOD CELL COUNT 3.84 M/uL (3.77-5.24); WHITE BLOOD CELL COUNT,WBC 8.3 K/uL (3.2-11.0)
[2024-04-14 05:23] LABS: A/G RATIO 0.7 (1.2-2.2); ALANINE AMINOTRANSFERASE,ALT 45 U/L (12-78); ALBUMIN 2.8 g/dL (3.4-5.0); ALKALINE PHOSPHATASE 56 U/L (46-116); ASPARTATE AMNIOTRANSFERASE,AST 22 U/L (15-37); BILIRUBIN TOTAL 0.4 mg/dL (0.2-1.0); BLOOD UREA NITROGEN,BUN 4 mg/dL (7-18); C-REACTIVE PROTEIN 5.02 mg/dL (<0.50); CALCIUM 8.3 mg/dL (8.5-10.1); CARBON DIOXIDE,CO2 24 mmol/L (21-32); CHLORIDE,CL 105 mmol/L (100-108); CREATININE 0.7 mg/dL (0.6-1.0); ESTIMATED GFR 99 mL/min (>60); GLUCOSE RANDOM 83 mg/dL (74-106); POTASSIUM,K 3.5 mmol/L (3.6-5.2); PROTEIN TOTAL,TP 6.6 g/dL (6.4-8.2); SODIUM,NA 139 mmol/L (140-148)
[2024-04-14 05:30] LABS: ANION GAP 13.5 mmol/L (5.0-14.0)
[2024-04-14 10:56] VITALS: BP 136/91; PULSE 76
== END 2024-04-14 11:06 | disposition home or self-care (01) | DRG 872 ==
LOC: JP.ED 22:41 → OBSVTOIN 04-12 02:37 → JP.MS 04-12 02:37 → JP.ICU 04-12 06:10
PROVIDERS: ADMIT Registered Nurse; ATTEND Hospitalist
PROC: 3E0234Z Introduction of Serum, Toxoid and Vaccine into Muscle, Percutaneous Approach (ICD-10-PCS; 2024-04-11)
PROC: 3E033XZ Introduction of Vasopressor into Peripheral Vein, Percutaneous Approach (ICD-10-PCS; principal; 2024-04-12)
DX: A41.9 Sepsis, unspecified organism (principal); E87.20 Acidosis, unspecified; K51.90 Ulcerative colitis, unspecified, without complications; R65.20 Severe sepsis without septic shock; E86.0 Dehydration; K21.9 Gastro-esophageal reflux disease without esophagitis; E66.9 Obesity, unspecified; F41.9 Anxiety disorder, unspecified; F32.A Depression, unspecified; H54.7 Unspecified visual loss; I95.9 Hypotension, unspecified; T45.1X5A Adverse effect of antineoplastic and immunosuppressive drugs, initial encounter; Z68.33 Body mass index [BMI] 33.0-33.9, adult; K75.4 Autoimmune hepatitis; D64.9 Anemia, unspecified; E83.51 Hypocalcemia; Z88.8 Allergy status to other drugs, medicaments and biological substances; Z98.51 Tubal ligation status; Z90.49 Acquired absence of other specified parts of digestive tract; Z79.899 Other long term (current) drug therapy; Z86.010 Personal history of colon polyps; Z90.710 Acquired absence of both cervix and uterus; Z98.890 Other specified postprocedural states
CPT/HCPCS: 36415; 71046; 71046-26; 71260; 71260-26; 74177; 74177-26; 80048; 80053; 80307; 81001; 82800; 83605; 83690; 83735; 84145; 85025; 85027; 85610; 85730; 86140; 87040; 96361; 96365; 96367; 96375; 99222; 99232; 99239; 99285; 99285-25; A9270-GY; G0378; J0612; J0744; J0780; J1720; J1836; J2543; J3475; J3490; J7030; Q9967; U0002

== ENCOUNTER 2025-01-15 07:36 | Day surgery (SDC) | payer MEDICAID ==
[2025-01-15] MEDS ORDERED: Sodium Chloride 0.9% 1,000 ML IV SCH (07:45)
[2025-01-15] MEDS: Lactated Ringers 1,000 ML IV SCH (08:15)
[2025-01-15] MEDS ORDERED: Propofol 200 MG/20 ML SDV ONE (08:52)
[2025-01-15] MEDS ORDERED: fentaNYL 50 MCG/ML SDV ONE (08:52)
[2025-01-15] MEDS ORDERED: Midazolam 1 MG/ML 2 ML SDV ONE (08:52)
[2025-01-15 12:09] VITALS: BP 120/77; PULSE 60
== END 2025-01-15 11:10 | disposition home or self-care (01) ==
LOC: JP.SDS 07:36
PROVIDERS: ATTEND Surgery
DX: K51.40 Inflammatory polyps of colon without complications (principal); K52.9 Noninfective gastroenteritis and colitis, unspecified; K63.89 Other specified diseases of intestine; E66.9 Obesity, unspecified; K57.30 Diverticulosis of large intestine without perforation or abscess without bleeding
CPT/HCPCS: 00811; 45380; J2250; J2704; J3010; J7120

== ENCOUNTER 2025-03-07 20:34 | Emergency (ER) | payer MEDICAID ==
[2025-03-07 21:20] VITALS: BP 137/101; PULSE 87
[2025-03-07] MEDS ORDERED: Naloxone 0.4 MG/ML SDV IVPUSH PRN (22:23)
[2025-03-07] MEDS: HYDROmorphone 0.5 MG/0.5 ML Syringe IVPUSH ONE (22:37)
[2025-03-07] MEDS: Sodium Chloride 0.9% 10 ML Syringe FLUSH PRN (22:38)
[2025-03-08] MEDS ORDERED: Propofol 200 MG/20 ML SDV ONE (00:13)
== END 2025-03-08 00:33 | disposition home or self-care (01) ==
LOC: JP.ED 20:34
DX: S43.005A Unspecified dislocation of left shoulder joint, initial encounter (principal); K21.9 Gastro-esophageal reflux disease without esophagitis; Z86.16 Personal history of COVID-19; Z88.8 Allergy status to other drugs, medicaments and biological substances; Z79.899 Other long term (current) drug therapy; X58.XXXA Exposure to other specified factors, initial encounter
CPT/HCPCS: 23650; 73020; 73030; 96374; 99283; J2704; J1171

== ENCOUNTER 2025-07-18 14:43 | Emergency (ER) | payer MEDICAID ==
[2025-07-18 15:09] VITALS: BP 164/99; PULSE 75
[2025-07-18] MEDS: Sodium Chloride 0.9% 10 ML Syringe FLUSH ONE (16:42)
[2025-07-18] MEDS: Iopamidol 612 MG/ML 100 ML Bottle IV ONE (16:42)
== END 2025-07-18 17:47 | disposition home or self-care (01) ==
LOC: JP.ED 14:43
DX: K40.90 Unilateral inguinal hernia, without obstruction or gangrene, not specified as recurrent (principal); K51.90 Ulcerative colitis, unspecified, without complications; E86.0 Dehydration; E66.9 Obesity, unspecified; K21.9 Gastro-esophageal reflux disease without esophagitis; Z79.899 Other long term (current) drug therapy; Z88.8 Allergy status to other drugs, medicaments and biological substances; Z90.49 Acquired absence of other specified parts of digestive tract; Z90.710 Acquired absence of both cervix and uterus; Z68.33 Body mass index [BMI] 33.0-33.9, adult
CPT/HCPCS: 74177; 96360; 99284; A9270; J7030; Q9967

== ENCOUNTER 2025-08-27 06:25 | Day surgery (SDC) | payer MEDICAID ==
[2025-08-27 07:01] LABS: PLATELET COUNT,PLT 287.0 K/uL (130-375); RED BLOOD CELL COUNT 4.46 M/uL (3.77-5.24); WHITE BLOOD CELL COUNT,WBC 6.7 K/uL (3.2-11.0)
[2025-08-27 07:17] LABS: BLOOD UREA NITROGEN,BUN 7.0 mg/dL (7-18); CARBON DIOXIDE,CO2 27.0 mmol/L (21-32); CHLORIDE,CL 105.0 mmol/L (100-108); CREATININE 0.8 mg/dL (0.6-1.0); EST CRCL DRUG DOSING (CG) 62.96 mL/min; ESTIMATED GFR 83.0 mL/min (>60); GLUCOSE RANDOM 104.0 mg/dL (74-106); POTASSIUM,K 3.8 mmol/L (3.6-5.2); SODIUM,NA 141.0 mmol/L (140-148)
[2025-08-27] MEDS ORDERED: Ondansetron 4 MG/2 ML SDV ONE (07:28)
[2025-08-27] MEDS ORDERED: Dexamethasone 4 MG/ML SDV ONE (07:28)
[2025-08-27] MEDS ORDERED: fentaNYL 250 MCG/5 ML SDV ONE (07:28)
[2025-08-27] MEDS ORDERED: Glycopyrrolate 0.2 MG/ML 5 ML MDV ONE (07:28)
[2025-08-27] MEDS ORDERED: Succinylcholine 200 MG/10 ML MDV ONE (07:28)
[2025-08-27] MEDS ORDERED: Propofol 200 MG/20 ML SDV ONE (07:28)
[2025-08-27] MEDS: Lactated Ringers 1,000 ML IV SCH (07:35)
[2025-08-27] MEDS: metroNIDAZOLE/Normal Saline 500 MG in Premix Bag 1 BAG IV ONE (08:25)
[2025-08-27] MEDS ORDERED: hydrALAZINE 20 MG/ML SDV ONE (08:47)
[2025-08-27] MEDS ORDERED: fentaNYL 100 MCG/2 ML SDV ONE (09:24)
[2025-08-27] MEDS: Ondansetron 4 MG/2 ML SDV IVPUSH ONE (09:47)
[2025-08-27] MEDS: Scopalamine 1mg/3day Transdermal Patch TOP ONE (10:19)
[2025-08-27] MEDS: Acetaminophen/HYDROcodone 325-5 MG Tab PO ONE (11:39)
[2025-08-27 12:36] VITALS: BP 143/74; PULSE 82
== END 2025-08-27 12:52 | disposition home or self-care (01) ==
LOC: JP.SDS 06:25
PROVIDERS: ATTEND Surgery
DX: K41.30 Unilateral femoral hernia, with obstruction, without gangrene, not specified as recurrent (principal); K40.90 Unilateral inguinal hernia, without obstruction or gangrene, not specified as recurrent; Z88.8 Allergy status to other drugs, medicaments and biological substances; Z79.899 Other long term (current) drug therapy
CPT/HCPCS: 00840-QZ; 36415; 80048; 85027; A9270-GY; C1781; J0169; J0330; J0360; J0665; J0690; J1100; J1596; J1836; J2405; J2704; J2710; J2795; J3010; J3490; J7120